=== PATIENT | female | born 1970 | race Caucasian/White ===

== ENCOUNTER 2017-02-13 12:40 | Emergency (ER) | payer MEDICAID, OTHER ==
[~2017-02-13] VITALS: Ht 160 cm; Wt 72.2 kg
[2017-02-13 12:44] VITALS: Ht 160 cm; Wt 72.2 kg
[2017-02-13] MEDS ORDERED: SOD CHLORIDE 0.9% 1,000 ML IV STA (13:13)
[2017-02-13] MEDS ORDERED: MECLIZINE 12.5 MG TAB PO ONE (13:30)
[2017-02-13] MEDS ORDERED: LORAZEPAM 2 MG INJ IV ONE (13:30)
--- NOTE | 2017-02-13 13:50 | RADRPT ---
PROCEDURE: CT Brain without contrast. CLINICAL INDICATION: Headache. Weakness. TECHNIQUE: A CT of the brain without contrast was performed utilizing axial sections from the skul l base through the vertex. The patient was scanned without intravenous contrast enhancement. Sagitta l and coronal reformatted images were obtained using the data from the axial images. Total exam DLP is 720.23 mGy-cm. CTDIvol is 42.81 mGy. One or more of the following dose reduction techniques we re used: Automated exposure control, adjustment of the mA and/or kV according to patient size, use o f iterative reconstruction technique. COMPARISON: None available FINDINGS: There is normal hdez-white matter differentiation. The ventricles and cisterns are normal. There is no intracranial hemorrhage or space-occupying lesion. There is no skull fracture or lytic lesion. IMPRESSION: 1. Normal noncontrast CT scan of the brain. 2. No intracranial hemorrhage. RPTAT: QQ .Sudhir Gauthier MD, MD Date Time Electronically viewed and signed by .Sudhir Gauthier MD, MD on 02/13/2017 13:50 .R/
[2017-02-13] MEDS ORDERED: ONDA4TAB14 PO (14:08)
[2017-02-13] MEDS ORDERED: MECL-77 PO (14:08)
[2017-02-13 14:11] VITALS: BP 132/66; PULSE 81; RESP 16; TEMP 98
--- NOTE | 2017-02-13 14:13 | ERD ---
ER Documentation Chief Complaint Date/Time DATE: 02/13/17 TIME: 14:10 Chief Complaint nausea/vomiting, epigastric pain, chills and emesis x6 episodes since 0400 HPI Very pleasant female 46 years old who presents with nausea vomiting, dizziness. The patient describes approximately 6 episodes of vertigo that his room spinning sensation that is worse with any head movements and alleviated when laying still. Vomiting is nonbloody nonbilious. She denies any abdominal pain though this was noted in triage. No chest pain or shortness of breath. She does have a mild headache that is dull, throbbing, diffuse, gradual in onset. ROS All systems reviewed and are negative except as per history of present illness. Medications Home Meds Active Scripts Ondansetron (Ondansetron Odt) 4 Mg Tab.rapdis, 4 MG PO Q6H Y for NAUSEA AND/OR VOMITING, #10 TAB Prov:YANET VALLADARES MD 02/13/17 Meclizine Hcl* (Meclizine Hcl*) 25 Mg Tablet, 25 MG PO Q8H Y for DIZZINESS, #30 TAB Prov:YANET VALLADARES MD 02/13/17 Allergies Allergies: Coded Allergies: Sulfa (Sulfonamide Antibiotics) (Verified Allergy, Intermediate, facial swelling, 02/13/17) PMhx/Soc Medical and Surgical Hx: pt denies Medical Hx, pt denies Surgical Hx Hx Alcohol Use: No Hx Substance Use: No Hx Tobacco Use: No Smoking Status: Never smoker FmHx Family History: No diabetes Physical Exam Vitals Vital Signs Date Time Temp Pulse Resp B/P Pulse Ox O2 Delivery O2 Flow Rate FiO2 02/13/17 12:44 98.0 58 16 141/70 99 Physical Exam General: Well developed, well nourished, no acute distress Head: Normocephalic, atraumatic. Eyes: Pupils equally reactive, EOM intact ENT: Moist mucous membranes Neck: Supple, no lymphadenopathy Respiratory: Lungs clear bilaterally, no distress Cardiovascular: RRR, no murmurs, rubs, or gallops Abdominal: Soft, non-tender, non-distended, no peritoneal signs : Deferred MSK: No edema, no unilateral swelling, 5/5 strength Neurologic: Alert and oriented, moving all extremities, normal speech, no focal weakness, no cerebellar signs reproducible vertigo with head movements Skin: No rash Psych: Normal mood Results 24 hrs Laboratory Tests Test 02/13/17 13:11 Serum HCG, Qualitative NEGATIVE Current Medications Medications (Trade) Dose Ordered Sig/Fermin Route PRN Reason Start Time Stop Time Status Last Admin Dose Admin Sodium Chloride (NS) 1,000 ml @ 1,000 mls/hr Q1H STAT IV 02/13/17 13:13 02/13/17 14:12 02/13/17 13:23 Lorazepam (Ativan) 1 mg ONCE ONCE IV 02/13/17 13:30 02/13/17 13:31 DC 02/13/17 13:23 Meclizine HCl (Antivert) 25 mg ONCE ONCE PO 02/13/17 13:30 02/13/17 13:31 DC 02/13/17 13:23 Procedures/MDM EKG, MONITORS, & DIAGNOSTIC IMAGING: CT brain: IMPRESSION: 1. Normal noncontrast CT scan of the brain. 2. No intracranial hemorrhage. RPTAT: QQ LAB INTERPRETATION: Negative hCG MEDICAL DECISION MAKING: The patient presents with reproducible vertigo symptoms with associated nausea and vomiting. She does have a mild headache but has a nonfocal neurologic exam. This is very consistent with benign positional vertigo. The patient has no risk factors for subarachnoid hemorrhage. No signs or symptoms concerning for cerebellar process. No evidence of stroke. ER COURSE: CT brain is negative. Patient given IV fluids, meclizine, Ativan with complete resolution of symptoms. She states that she is feeling better. The patient is safe for discharge home. Return precautions discussed, outpatient primary care neurology follow-up discussed if symptoms do not resolve in 1 week. I kept the patient and/or family informed of laboratory and diagnostic imaging results throughout the emergency room course. DISPOSITION PLAN: We discussed follow up with the patient's primary care doctor within 24 to 48 hours as needed. We also discussed return to the emergency room for worsening symptoms or worsening condition. Outpatient referral: [None required] Discharge Medications: Meclizine, Zofran Departure Diagnosis: Primary Impression: BPV (benign positional vertigo) Laterality: unspecified laterality Qualified Code: H81.10 - BPV (benign positional vertigo), unspecified laterality Condition: Stable Patient Instructions: Benign Positional Vertigo Ref[facility] Usted se bautista hecho un examen mdico de control que le indica que no est en baldev condicin que requiera tratamiento urgente en el Departamento de Emergencia. Un estudio ms profundo y el tratamiento de newton condicin pueden esperar sin ningn riesgo hasta que usted sea atendida/o en el consultorio de newton mdico o baldev cl darshan. Es responsabilidad suya arreglar baldev tom para el seguimiento del claudia. MANEJO DE CONDICIONES NO URGENTES EN EL FUTURO 1) Si usted tiene un mdico de atencin primaria: Usted debera llamar a newton mdico de atencin primaria antes de venir al departamento de emergencia. Despus de las horas de consultorio, newton doctor o newton asociado/a est disponible por telfono. El mdico o enfermero de giovanna en el servicio telefnico puede asesorarle por farzana medio para atender el problema, o claudia contrario se puede programar baldev tom. 2) Si usted no tiene un mdico de atencin primaria: Llame al mdico o clnica de referencia que aparece abajo virgilio las horas de consultorio para hacer baldev tom para que le vean. CLINICAS: [facility] [phone] [facility] [phone] [facility] [phone] [facility] [phone] [facility] [place] [id number] [phone] [facility]. [phone] [address] . [facility] () Usted se bautista hecho un examen mdico de control que le indica que no est en baldev condicin que requiera tratamiento urgente en el Departamento de Emergencia. Un estudio ms profundo y el tratamiento de newton condicin pueden esperar sin ningn riesgo hasta que usted sea atendida/o en el consultorio de newton mdico o baldev cl darshan. Es responsabilidad suya arreglar baldev tom para el seguimiento del claudia. MANEJO DE CONDICIONES NO URGENTES EN EL FUTURO 1) Si usted tiene un mdico de atencin primaria: Usted debera llamar a newton mdico de atencin primaria antes de venir al departamento de emergencia. Despus de las horas de consultorio, newton doctor o newton asociado/a est disponible por telfono. El mdico o enfermero de giovanna en el servicio telefnico puede asesorarle por farzana medio para atender el problema, o claudia contrario se puede programar baldev tom. 2) Si usted no tiene un mdico de atencin primaria: Llame al mdico o condado institucions de referencia que aparece abajo virgilio las horas de consultorio para hacer baldev tom para que le vean. SI USTED NO PUEDE PAGAR PARA MERISSA UN MEDICO puede ir a: [facility] [address] [place] [address] [facility] [address] [place] [address] [facility] [address] [place] [address] PARA [facility] [address] [place] [address] Additional Instructions: Llame al doctor nombrado abajo (Referral Sources) MAANA y farrah baldev TOM PARA DENTRO DE BALDEV SEMANA. Dgale a la secretaria que nosotros le instruimos hacer esta tom.Avise o llame si newton condicin se empeora antes de la tom. YANET VALLADARES MD Feb 13, 2017 14:12
== END 2017-02-13 14:30 | disposition home or self-care (01) ==
LOC: E/R 12:40
DX: H81.10 Benign paroxysmal vertigo, unspecified ear (principal); R40.2252 Coma scale, best verbal response, oriented, at arrival to emergency department; R40.2142 Coma scale, eyes open, spontaneous, at arrival to emergency department; R40.2362 Coma scale, best motor response, obeys commands, at arrival to emergency department
CPT/HCPCS: 70450; 84703; 96374; J2060; J7030; Z7502; Z7610